=== PATIENT | female | born 2000 | race Two or more races ===

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

== ENCOUNTER 2021-03-22 13:11 | Emergency (ER) | payer SELFPAY ==
[~2021-03-22] VITALS: Ht 160 cm; Wt 50.0 kg
[~2021-03-22 13:11] MED LIST changes: +IBUP-1007 PO; +METH4TAB2 PO
[2021-03-22 13:44] VITALS: BP 140/56
[2021-03-22 14:41] LABS: BASO % 0 % (0-3); EOS % 0 % (0-3); HEMATOCRIT 37.6 % (36.0-47.0); HEMOGLOBIN 12.6 g/dL (12.0-15.5); LYMPH # 2.4 x10^3/uL (1.0-4.8); LYMPH % 24 % (24-48); MEAN CORPUSCULAR HEMOGLOBIN 31 pg (25-35); MEAN CORPUSCULAR HGB CONC 33 g/dL (31-37); MEAN CORPUSCULAR VOLUME 94 fL (79-100); MONO # 0.5 x10^3/uL (0.0-1.1); MONO % 5 % (0-9); NEUT # 7.3 x10^3/uL (1.8-7.7); NEUT % 71 % (31-73); PLATELET COUNT 177 x10^3/uL (140-400); RED BLOOD COUNT 4.01 x10^6/uL (3.50-5.40); RED CELL DISTRIBUTION WIDTH 13.5 % (11.5-14.5); WHITE BLOOD COUNT 10.3 x10^3/uL (4.0-11.0)
[2021-03-22 15:13] LABS: CALCIUM 8.3 mg/dL (8.5-10.1); CREATININE 0.5 mg/dL (0.6-1.0); GFR 158.9; POTASSIUM 3.8 mmol/L (3.5-5.1)
--- NOTE | 2021-03-22 15:16 | PHYS DOC ---
Past Medical History Past Medical History: No Pertinent History Past Surgical History: No Surgical History Smoking Status: Never Smoker Alcohol Use: None Drug Use: None General Adult EDM: Chief Complaint: OTHER COMPLAINTS HPI: HPI: Patient is a 20 year old female who presents with concerns about miscarriage. Patient states she was seen at the [facility] at this morning and told she was having a miscarriage. Patient states that she was given the option to naturally pass the baby or to take a medication to help. Patient states that at that time she was confused and did not know what to do. Patient was being seen to have a second opinion on how to handle the miscarriage. G2, P0 patient denies medical history. Review of Systems: Review of Systems: ROS At least 10 ROS systems have been reviewed and are negative except as documented in the HPI. General: Negative except as outlined in HPI above. Skin: Negative except as outlined in HPI above. HEENT: Negative except as outlined in HPI above. Neck: Negative except as outlined in HPI above. Respiratory: Negative except as outlined in HPI above.. Cardiovascular: Negative except as outlined in HPI above. Abdomen: Negative except as outlined in HPI above. : Negative except as outlined in HPI above. Back/MSK: Negative except as outlined in HPI above. Neuro: Negative except as outlined in HPI above. Psych: Negative except as outlined in HPI above. Heart Score: C/O Chest Pain: No Risk Factors: Risk Factors: DM, Current or recent (<one month) smoker, HTN, HLP, family history of CAD, obesity. Risk Scores: Score 0 - 3: 2.5% MACE over next 6 weeks - Discharge Home Score 4 - 6: 20.3% MACE over next 6 weeks - Admit for Clinical Observation Score 7 - 10: 72.7% MACE over next 6 weeks - Early Invasive Strategies Allergies: Allergies: Allergies Coded Allergies Type Severity Reaction Last Updated Verified No Known Drug Allergies 12/14/19 No Physical Exam: PE: Constitutional: Well developed, well nourished, no acute distress, non-toxic appearance. [] HENT: Normocephalic, atraumatic, bilateral external ears normal, oropharynx moist, no oral exudates, nose normal. [] Eyes: PERRLA, EOMI, conjunctiva normal, no discharge. [] Neck: Normal range of motion, no tenderness, supple, no stridor. [] Cardiovascular:Heart rate regular rhythm, no murmur [] Lungs & Thorax: Bilateral breath sounds clear to auscultation [] Abdomen: Bowel sounds normal, soft, no tenderness, no masses, no pulsatile masses. [] Skin: Warm, dry, no erythema, no rash. [] Back: No tenderness, no CVA tenderness. [] Extremities: No tenderness, no cyanosis, no clubbing, ROM intact, no edema. [] Neurologic: Alert and oriented X 3, normal motor function, normal sensory function, no focal deficits noted. [] Psychologic: Affect normal, judgement normal, mood normal. [] Current Patient Data: Labs: Laboratory Tests Test 03/22/21 14:35 White Blood Count 10.3 x10^3/uL (4.0-11.0) Red Blood Count 4.01 x10^6/uL (3.50-5.40) Hemoglobin 12.6 g/dL (12.0-15.5) Hematocrit 37.6 % (36.0-47.0) Mean Corpuscular Volume 94 fL (79-100) Mean Corpuscular Hemoglobin 31 pg (25-35) Mean Corpuscular Hemoglobin Concent 33 g/dL (31-37) Red Cell Distribution Width 13.5 % (11.5-14.5) Platelet Count 177 x10^3/uL (140-400) Neutrophils (%) (Auto) 71 % (31-73) Lymphocytes (%) (Auto) 24 % (24-48) Monocytes (%) (Auto) 5 % (0-9) Eosinophils (%) (Auto) 0 % (0-3) Basophils (%) (Auto) 0 % (0-3) Neutrophils # (Auto) 7.3 x10^3/uL (1.8-7.7) Lymphocytes # (Auto) 2.4 x10^3/uL (1.0-4.8) Monocytes # (Auto) 0.5 x10^3/uL (0.0-1.1) Eosinophils # (Auto) 0.0 x10^3/uL (0.0-0.7) Basophils # (Auto) 0.0 x10^3/uL (0.0-0.2) Laboratory Tests 03/22/21 14:35 Vital Signs: Vital Signs Date Time Temp Pulse Resp B/P (MAP) Pulse Ox O2 Delivery O2 Flow Rate FiO2 03/22/21 13:44 98.9 70 16 140/56 (84) 99 Room Air 98.9 EKG: EKG: [] Radiology/Procedures: Radiology/Procedures: []US OB TRANSVAGINAL History: Reason: possible miscarriage / Spl. Instructions: / History: Comparison: December 14, 2019.. Technique: Grayscale and color Doppler imaging of the pelvis was performed using transvaginal technique. Findings: The uterus measures 10.0 x 7.0 x 6.0 cm. Single intrauterine gestational sac with irregular appearance. Yolk sac is identified. pole is identified with crown-rump length 0.47 cm. Estimated gestational age by ultrasound 6 weeks 1 day. No heart rate is detected. Subchorionic hematoma measures 4.1 x 1.7 cm. Right ovary measures 4.4 x 1.8 x 1.9 cm. Dominant complicated right ovarian follicle measures 2.4 cm. Left ovary measures 3.2 x 2.2 x 1.2 cm. Normal Doppler flow to the ovaries bilaterally IMPRESSION: 1. Irregular intrauterine gestational sac. No heart rate is detected. Findings concerning for failed early . 2. Subchorionic hematoma. Electronically signed by: Dewayne Crowell DO (03/22/2021 3:23 PM) [id number] Course & Med Decision Making: Course & Med Decision Making Pertinent Labs and Imaging studies reviewed. (See chart for details) [] 20-year-old female presents with concerns of miscarriage. Patient was seen this morning at [facility] and told that she was miscarrying. Patient was given options at that time to proceed with medication to help with the miscarriage or to wait for her body to naturally miscarry on its own. Patient states that she was unsure of what to do and wanted a second opinion. Work-up in ER consisted of ultrasound, lab work, hCG quant, UA. Ultrasound showed demise. Discussed all results with patient. Patient decided that she wants to go home and naturally pass the baby on her own. Patient does have a follow-up on the with her [facility] clinic. Discussed return precautions in length with patient. Patient verbalizes understanding of discharge and return precautions. Denying pain or vaginal bleeding at this time. Patient hemodynamically stable upon disposition Dragon Disclaimer: Dragon Disclaimer: This electronic medical record was generated, in whole or in part, using a voice recognition dictation system. Departure Departure Impression: Primary Impression: Spontaneous miscarriage Disposition: HOME / SELF CARE / HOMELESS Condition: STABLE Referrals: NO PCP (PCP) Patient Instructions: Miscarriage, [id number] Additional Instructions: You were seen in the emergency room for possible miscarriage. Ultrasound confirmed miscarriage result she received this morning. You have decided that you did not want to take any medication to help with the miscarriage and you were going to wait for your body to naturally miscarry. Please keep your appointment on the with your [facility] office. Please return to the emergency room if you have any worsening symptoms or concerns EMERGENCY DEPARTMENT GENERAL DISCHARGE INSTRUCTIONS Thank you for coming to [facility] Emergency Department (ED) today and trusting us with you care. We trust that you had a positive experience in our Emergency Department. If you wish to speak to the department management, you may call the Director at [phone]. YOUR FOLLOW UP INSTRUCTIONS ARE FOLLOWS: 1. Do you have a private Doctor? If you do not have a private doctor, please ask for a resource list of physicians or clinics that may be able to assist you with follow up care. 2. The Emergency Physicain has interpreted your x-rays. The X-Ray specialist will also review them. If there is a change in the findings, you will be notified in 48 hours when at all possible. 3. A lab test or culture has been done, your results will be reviewed and you will be notified if you need a change in treatment. ADDITIONAL INSTRUCTIONS AND INFORMATION: 1. Your care today has been supervised by a physician who is specially trained in emergency care. Many problems require more than one evaluation for a complete diagnosis and treatment. We recommend that you schedule your follow up appointment as recommended to ensure complete treatment of you illness or injury. If you are unable to obtain follow up care and continue to have a problem, or if your condition worsens, we recommend that you return to the ED. 2. We are not able to safely determine your condition over the phone nor are we able to give sound medical advice over the phone. For these safety reasons, if you call for medical advice we will ask you to come to the ED for further evaluation. 3. If you have any questions regarding these discharge instructions please call the ED at [phone]. SAFETY INFORMATION: In the interest of safety, wellness, and injury prevention; we encourage you to wear your sealbelt, if you smoke; quite smoking, and we encourage family to use a protective helmet for bicycling and other sporting events that present an increased risk for head injury. IF YOUR SYMPTOMS WORSEN OR NEW SYMPTOMS DEVELOP, OR YOU HAVE CONCERNS ABOUT YOUR CONDITION; OR IF YOUR CONDITION WORSENS WHILE YOU ARE WAITING FOR YOUR FOLLOW UP APPOINTMENT; EITHER CONTACT YOUR PRIMARY CARE DOCTOR, THE PHYSICIAN WHOSE NAME AND NUMBER YOU WERE GIVEN, OR RETURN TO THE ED IMMEDIATELY. MIKEY TAN APRN Mar 22, 2021 15:16
--- NOTE | 2021-03-22 15:25 | RAD ---
US OB TRANSVAGINAL History: Reason: possible miscarriage / Spl. Instructions: / History: Comparison: December 14, 2019.. Technique: Grayscale and color Doppler imaging of the pelvis was performed using transvaginal [employer] ue. Findings: The uterus measures 10.0 x 7.0 x 6.0 cm. Single intrauterine gestational sac with irregular appearance. Yolk sac is identified. pole is identified with crown-rump length 0.47 cm. Estimated gestational age by ultrasound 6 weeks 1 day. No heart rate is detected. Subchorionic hematoma measures 4.1 x 1.7 cm. Right ovary measures 4.4 x 1.8 x 1.9 cm. Dominant complicated right ovarian follicle measures 2.4 cm. Left ovary measures 3.2 x 2.2 x 1.2 cm. Normal Doppler flow to the ovaries bilaterally IMPRESSION: 1. Irregular intrauterine gestational sac. No heart rate is detected. Findings concerning for failed early . 2. Subchorionic hematoma. Electronically signed by: Dewayne Crowell DO (03/22/2021 3:23 PM) [id number]
== END 2021-03-22 16:43 | disposition home or self-care (01) ==
LOC: ER 13:11
DX: O03.9 Complete or unspecified spontaneous abortion without complication (principal)
CPT/HCPCS: 36415; 76817; 80048; 84702; 85025; 99284-25